=== PATIENT | male | born 1985 | race Caucasian/White ===

== ENCOUNTER 2025-04-06 03:07 | Emergency (ER) | payer OTHER, SELFPAY ==
[2025-04-06 03:21] VITALS: BP 174/133; PULSE 110; RESP 18; TEMP 36.7; O2SAT 100; BMI 26.4
[2025-04-06 04:21] LABS: Hematocrit 43.2 % (37-53); Hemoglobin 15.00 g/dL (11.27-16.99); Mean Corpuscular HGB Conc 34.7 g/dL (30-55); Mean Corpuscular Hemoglobin 29.4 pg (27-33); Mean Corpuscular Volume 84.5 fl (82-101); Nucleated Red Blood Cells % 0 %; Platelet Count 210 10^3/cmm (157-399); Red Blood Count 5.11 10^6/uL (3.85-5.65); White Blood Count 7.35 10^3/uL (3.29-11.43)
[2025-04-06 04:40] LABS: Alanine Aminotransferase 20 U/L (0-41); Albumin Level 4.9 g/dL (3.5-5.2); Alkaline Phosphatase 68 U/L (40-130); Anion Gap 17.6 (5-19); Aspartate Amino Transferase 20 U/L (0-40); Blood Urea Nitrogen 9 mg/dL (6-20); Calcium 9.7 mg/dL (8.5-10.5); Carbon Dioxide 25 mmol/L (22-29); Chloride 101 mmol/L (98-107); Creatinine Clr Calc Pharmacy 122.9216; Globulin 3.1 g/dL (1.3-4.6); Glucose 109 mg/dL (65-115); Osmolality Calculated 289 mOsm/kg (285-295); Potassium 3.6 mmol/L (3.5-5.1); Sodium 140 mmol/L (136-145); Total Protein 8.0 g/dL (6.6-8.7)
--- NOTE | 2025-04-06 05:57 | ED_ITS ---
HPI - Anxiety 2 General: Chief Complaint: Anxiety Stated Complaint: High BP Lightheaded Anxity Time Seen by Provider: 04/06/25 05:56 History of Present Illness: 39--year-old male presents to the emerge ncy room plaint of lightheadedness and anxiety. Show his chief complaint. Initially states he just feels like he is on a roller coaster where he is on other symptoms patient is not really able to explain. He did mention he felt like his heart was racing at times and his blood pressure was elevated. When he queried specific review of systems with no adequately he is negative. Associated symptoms: Reports palpitations; Deny chest pain, chills or fever(s) Related Data Previous Rx's ?Medication ?Instructions ?Recorded hydroxyzine HCl 25 mg tablet 25 mg PO Q6H PRN anxiety #14 tabs 04/06/25 Allergies Allergy/AdvReac Type Severity Reaction Status Date / Time No Known Allergies Allergy Verified 04/06/25 04:07 Review of Systems 2 Const: Denies: fever(s) or chills Card: Reports: palpitations; Denies: chest pain Resp: Denies: dyspnea GI: Denies: abdominal pain : Denies: dysuria, urinary frequency or urinary urgency Musc: Denies: neck pain or back pain Skin/Breast: Denies: rash Psych: Reports: anxiety Physical Exam 2 Const: GENERAL APPEARANCE: cooperative ORIENTATION/CONSCIOUSNESS: Yes awake, Yes oriented to person, Yes oriented to place and Yes oriented to time HENMT: COMMON NORMALS: normocephalic, atraumatic and hearing grossly normal bilaterally HEAD & SCALP: normocephalic and atraumatic Resp: COMMON NORMALS: normal respiratory effort, No retractions, No use of accessory muscles and clear to auscultation bilaterally AUSCULTATION: clear to auscultation bilaterally Cardio: COMMON NORMALS: regular rate, regular rhythm and No murmurs present (Cardio) RATE: regular rate RHYTHM: regular rhythm GI: COMMON NORMALS: Soft to palpation and No hepatosplenomegaly present A USCULTATION: Yes normoactive bowel sounds PALPATION: Yes Soft to palpation, No Tenderness to palpation present (GI), No Guarding due to palpation present (GI) and Yes No hepatosplenomegaly present Extremity: COMMON NORMALS: normal to inspection, capillary refill normal, no clubbing, cyanosis or edema, no calf tenderness and no pedal edema Neuro: SENSORIUM/ORIENTATION: Yes oriented to person, Yes oriented to place and Yes oriented to time Skin: COMMON NORMALS: no rashes or lesions noted GENERAL SKIN EXAM: no rashes or lesions noted Course 2 Vital Signs: Vital signs: Vital Signs Temperature 98.1 F 04/06/25 03:21 Pulse Rate 110 H 04/06/25 03:21 Respiratory Rate 18 04/06/25 03:21 Blood Pressure 174/133 04/06/25 03:21 Pulse Oximetry 100 04/06/25 03:21 Oxygen Delivery Me thod Room Air 04/06/25 03:21 MDM - Anxiety Medical Decision Making 39-year-old male with. Patient has palpitations. EKG shows sinus tachycardia but no acute ST changes noted. Blood glucose normal will discharge patient home with hydroxyzine to use as needed follow-up with primary care Lab Data I reviewed the patient's lab results. 04/06/25 04:17 04/06/25 04:17 Laboratory Results WBC 7.35 10^3/uL (3.29-11.43) 04/06/25 04:17 RBC 5.11 10^6/uL (3.85-5.65) 04/06/25 04:17 Hgb 15.00 g/dL (11.27-16.99) 04/06/25 04:17 Hct 43.2 % (37-53) 04/06/25 04:17 MCV 84.5 fl (82-101) 04/06/25 04:17 MCH 29.4 pg (27-33) 04/06/25 04:17 MCHC 34.7 g/dL (30-55) 04/06/25 04:17 RDW 12.2 % (12.1-15.1) 04/06/25 04:17 Plt Count 210 10^3/cmm (157-399) 04/06/25 04:17 MPV 10.8 fL (7.4-10.4) H 04/06/25 04:17 Neut % (Auto) 63.0 % 04/06/25 04:17 Lymph % (Auto) 28.6 % 04/06/25 04:17 [place] % (Auto) 6.5 % 04/06/25 04:17 Eos % (Auto) 1.1 % 04/06/25 04:17 Baso % (Auto) 0.5 % 04/06/25 04:17 Neut # (Auto) 4.63 10^3/uL (1.8-7.7) 04/06/25 04:17 Lymph # (Auto) 2.1 10^3/uL (0.8-4.8) 04/06/25 04:17 [place] # (Auto) 0.5 10^3/uL (0.2-0.9) 04/06/25 04:17 Eos # (Auto) 0.1 10^3/uL (0.0-0.8) 04/06/25 04:17 Baso # (Auto) 0.0 10^3/uL (0.0-0.1) 04/06/25 04:17 Nucleated RBC % (auto) 0 % 04/06/25 04:17 Nucleated RBCs # 0.0 /100WBC 04/06/25 04:17 Sodium 140 mmol/L (136-145) 04/06/25 04:17 Potassium 3.6 mmol/L (3.5-5.1) 04/06/25 04:17 Chloride 101 mmol/L (98-107) 04/06/25 04:17 Carbon Dioxide 25 mmol/L (22-29) 04/06/25 04:17 Anion Gap 17.6 (5-19) 04/06/25 04:17 BUN 9 mg/dL (6-20) 04/06/25 04:17 Creatinine 0.9 mg/dL (0.7-1.2) 04/06/25 04:17 GFR Calculation 93.5 mL/min (90-130) 04/06/25 04:17 Glucose 109 mg/dL (65-115) 04/06/25 04:17 POC Glucose 111 mg/dL (70-110) H 04/06/25 06:18 Calculated Osmolality 289 mOsm/kg (285-295) 04/06/25 04:17 Calcium 9.7 mg/dL (8.5-10.5) 04/06/25 04:17 Total Bilirubin 0.8 mg/dL (0.15-1.2) 04/06/25 04:17 AST 20 U/L (0-40) 04/06/25 04:17 ALT 20 U/L (0-41) 04/06/25 04:17 Alkaline Phosphatase 68 U/L (40-130) 04/06/25 04:17 Total Protein 8.0 g/dL (6.6-8.7) 04/06/25 04:17 Albumin 4.9 g/dL (3.5-5.2) 04/06/25 04:17 Globulin 3.1 g/dL (1.3-4.6) 04/06/25 04:17 No radiology studies performed this visit EKG Data EKG 1: Interpretation: EKG April 06, 2025 6 rate of 108. Sinus tachycardia no acute ST changes noted. No ST elevation. Discharge Plan Discharge Patient Disposition: Home Clinical Impression: Acute anxiety Condition: Stable Prescriptions: New hydroxyzine HCl 25 mg tablet 25 mg PO Q6H PRN (Reason: anxiety) Qty: 14 0RF Discharge Orders: Discharge ED (Routine); Ordered 04/06/25 Ordered By: Farrukh Van Discharge Diet: Usual diet Discharge Activity: Resume usual activity Patient Instructions: Opioid Safety, Pain Management, Patient Portal & [facility]dev Instructions Activity Restrictions/Additional Instructions: Thank you for choosing [facility] for your healthcare needs today. It is very important that you follow up as instructed or that you return to the Emergency Department should you have concerns or if your condition changes or worsens in any way. You were seen in the emergency with anxiety. Recommend using hydroxyzine 25 mg 1 tablet every 6 hours as needed. Follow-up with your primary care provider for further treatment options for long-term. Monitor your blood sugar at home and review with your primary care provider as well Print Language: Serbian Coding Level of Care Code ED Grading Supervisor for Alex England
--- NOTE | 2025-04-06 06:09 | ECG_ITS ---
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 Measurements Intervals [place] Rate: 108 P: 66 CA: 128 QRS: 56 QRSD: 89 T: 53 QT: 339 QTc: 456 Interpretive Statements SINUS TACHYCARDIA POSSIBLE LEFT ATRIAL ENLARGEMENT [-0.1mV P-WAVE IN V1/V2] NONSPECIFIC T-WAVE ABNORMALITY ABNORMAL RHYTHM ECG No previous ECG available for comparison Electronically Signed On 04-06-2025 08:17:31 CDT by Edmond George M.D. [email or web address]
[2025-04-06 07:03] VITALS: BP 168/97; PULSE 89; RESP 22; O2SAT 97
== END 2025-04-06 06:45 | disposition home or self-care (01) ==
PROVIDERS: Family Medicine; Emergency Provider Family Medicine
DX: F41.8 Other specified anxiety disorders (principal)
CPT/HCPCS: 36415; 36416; 80053; 82962; 85025; 93005; 99284